=== PATIENT | male | born 1975 | race Two or more races ===

== ENCOUNTER 2017-04-27 05:57 | Emergency (ER) | payer OTHER ==
[~2017-04-27] VITALS: Ht 177.8 cm; Wt 90.7 kg
[2017-04-27] MEDS ORDERED: NKM (06:00)
[2017-04-27 06:05] VITALS: BP 148/97
--- NOTE | 2017-04-27 06:09 | Emergency Room Report ---
History of Present Illness General Chief Complaint: Abdominal Pain Source: Patient (Balaji Kaur M.D.) Present Illness HPI Patient presents with abdominal pain and vomiting. He was in a hotel and drinking alcohol and felt that there might have been other drugs involved. Paramedics were summoned as the patient feels weak and unable to ambulate at this time. His epigastric pain. He had a similar several weeks ago with similar presentation. Pain reported 7/10, burning, constant and not radiating to back. The patient denies any cardiac disease. Denies any vomiting blood or melena. Has no fever. He states he has to urinate but is unable. Denies intent to do self harm. (Balaji Kaur M.D.) Allergies: Coded Allergies: No Known Allergies (Unverified , 04/27/17) Patient History Past Medical History: see triage record Social History: Reports: alcohol use, drug use, smoking Reviewed Nursing Documentation: PMH: Agreed, PSxH: Agreed (Balaji Kaur M.D.) Nursing Documentation-PMH Past Medical History: No Stated History (Balaji Kaur M.D.) Review of Systems All Other Systems: negative except mentioned in HPI (Blaaji Kaur M.D.) All Other Systems: negative except mentioned in HPI (GALE TAVAREZ D.O.) Physical Exam Vital Signs Date Time Temp Pulse Resp B/P Pulse Ox O2 Delivery O2 Flow Rate FiO2 04/27/17 06:00 98.2 100 18 148/97 100 Room Air Sp02 EP Interpretation: reviewed, normal General Appearance: GCS 15, mild distress Head: normocephalic Eyes: bilateral eye PERRL, bilateral eye Scleral Injection ENT: dry mucus membranes Neck: supple Respiratory: lungs clear, normal breath sounds Cardiovascular #1: regular rate, rhythm Cardiovascular #2: 2+ radial (R) Gastrointestinal: normal inspection, no mass, non-distended, no guarding, no rebound, abnormal bowel sounds - decreased, tenderness - epigastric Genitourinary: normal inspection Musculoskeletal: back normal, normal range of motion Neurologic: alert, oriented x3, motor strength/tone normal, sensory intact, speech normal, other - generalized weakness Psychiatric: depressed affect Skin: normal inspection, warm/dry (Balaji Kaur M.D.) Sp02 EP Interpretation: reviewed, normal General Appearance: well appearing, no apparent distress Head: normocephalic, atraumatic Eyes: bilateral eye EOMI, bilateral eye PERRL ENT: hearing grossly normal, normal pharynx, TMs + canals normal, uvula midline Neck: full range of motion, supple, no meningismus, no bony tend Respiratory: lungs clear, normal breath sounds, no rhonchi, no respiratory distress, no retraction, no accessory muscle use Cardiovascular #1: normal peripheral pulses, regular rate, rhythm, no edema, no gallop, no JVD, no murmur Gastrointestinal: normal bowel sounds, non tender, soft, no mass, no organomegaly, non-distended, no guarding, no hernia, no pulsatile mass, no rebound Genitourinary: no CVA tenderness Neurologic: oriented x3, responsive, manager background III-XII nml as tested, motor strength/ tone normal, sensory intact Psychiatric: mood/affect normal Skin: normal color, no rash, warm/dry, palpation normal Lymphatic: normal inspection, no adenopathy (GALE TAVAREZ.Melissa) Medical Decision Making Diagnostic Impression: Primary Impression: Abdominal pain Qualified Codes: R10.13 - Epigastric pain Additional Impression: Amphetamine abuse ER Course Patient with alleged polysubstance ingestion. DDx: electrolyte abnormality, drug ingestion, alcohol intoxication, rhabdo, occult infection amongst others. He denies SI or HI. Needs evaluation with EKG, CXR, labs. IV hydration ordered. Also pepcid ordered. Patient signed out to Dr. Tavarez. (Balaji Kaur M.D.) ER Course With the history exam and presentation, multiple differentials considered, including but not limited to appendicitis, gastritis, cholecystitis, diverticulitis Please refer to the initial note for the initial history and exam At this time on reevaluation Patient has done significantly better reports that his pain in the epigastric area down to 2/10 Patient unfortunately was not able to provide urine sample We did suggest a simple in and out catheter for the urine however the patient is refusing this With further discussion the patient does admit to increased alcohol ingestion Feel that this could have potentially cause his irritation Patient reports that he has had this similar episode several times Denies drinking anything such as rubbing alcohol Patient's evaluation is not in line with any signs of perforation clinically And at this time will be attempted for initial conservative outpatient trial If anything worsens will return to ER Labs Test 04/27/17 06:30 White Blood Count 11.7 K/UL (4.8-10.8) Red Blood Count 4.55 M/UL (4.70-6.10) Hemoglobin 15.2 G/DL (14.2-18.0) Hematocrit 43.7 % (42.0-52.0) Mean Corpuscular Volume 96 FL (80-99) Mean Corpuscular Hemoglobin 33.3 PG (27.0-31.0) Mean Corpuscular Hemoglobin Concent 34.7 G/DL (32.0-36.0) Red Cell Distribution Width 11.2 % (11.6-14.8) Platelet Count 354 K/UL (150-450) Mean Platelet Volume 6.0 FL (6.5-10.1) Neutrophils (%) (Auto) 74.7 % (45.0-75.0) Lymphocytes (%) (Auto) 17.3 % (20.0-45.0) Monocytes (%) (Auto) 7.0 % (1.0-10.0) Eosinophils (%) (Auto) 0.1 % (0.0-3.0) Basophils (%) (Auto) 0.9 % (0.0-2.0) Sodium Level 138 mEQ/L (135-145) Potassium Level 3.8 mEQ/L (3.4-4.9) Chloride Level 98 mEQ/L (98-107) Carbon Dioxide Level 23 mEQ/L (20-30) Anion Gap 17 (5-15) Blood Urea Nitrogen 18 mg/dL (7-23) Creatinine 1.2 mg/dL (0.7-1.2) Estimat Glomerular Filtration Rate > 60 mL/min (>60) Glucose Level 103 mg/dL (74-106) Calcium Level 9.5 mg/dL (8.6-10.2) Total Bilirubin 0.6 mg/dL (0.0-1.2) Aspartate Amino Transf (AST/SGOT) 20 U/L (5-40) Alanine Aminotransferase (ALT/SGPT) 16 U/L (3-41) Alkaline Phosphatase 92 U/L (40-129) Total Protein 9.2 g/dL (6.6-8.7) Albumin 5.6 g/dL (3.5-5.2) Globulin 3.6 g/dL Albumin/Globulin Ratio 1.5 (1.0-2.7) Lipase 15 U/L (< 60) Serum Alcohol < 10 mg/dL (GALE TAVAREZ D.O.) EKG Diagnostic Results Rhythm: NSR ST Segments: no acute changes (Balaji Kaur M.D.) Rhythm Strip Diag. Results EP Interpretation: yes Rhythm: NSR, no PVC's, no ectopy (Balaji Kaur M.D.) Status: improved (Balaji Kaur M.D.) Status: improved (GALE TAVAREZ D.O.) Disposition: HOME, SELF-CARE Condition: Improved Scripts Mag Hydrox/Al Hydrox/Simeth (MAALOX MAXIMUM STRENGTH SUSP) 355 Ml Oral.susp 15 ML PO BID for 7 Days, ML Prov: GALE TAVAREZ D.O. 04/27/17 Famotidine (PEPCID AC) 20 Mg Tablet 20 MG PO DAILY for 10 Days, TAB Prov: GALE TAVAREZ D.O. 04/27/17 Additional Instructions: Patient is provided with the discharge instructions notified to follow up with primary doctor in the next 2-3 days otherwise return to the er with any worsening symptoms. Please note that this report is being documented using Mett[employer] technology. This can lead to erroneous entry secondary to incorrect interpretation by the dictating instrument. Balaji Kaur M.D. Apr 27, 2017 06:09 GALE TAVAREZ D.O. Apr 27, 2017 08:38
[2017-04-27] MEDS ORDERED: Famotidine 20 MG/ 2ML VIAL IVP ONE (06:15)
[2017-04-27 07:05] LABS: BASOPHILS % (AUTO) 0.9 % (0.0-2.0); EOSINOPHILS % (AUTO) 0.1 % (0.0-3.0); LYMPHOCYTES % (AUTO) 17.3 % (20.0-45.0); MEAN CORPUSCULAR HEMOGLOBIN 33.3 PG (27.0-31.0); MEAN CORPUSCULAR HGB CONC 34.7 G/DL (32.0-36.0); MEAN CORPUSCULAR VOLUME 96 FL (80-99); NEUTROPHILS % (AUTO) 74.7 % (45.0-75.0); PLATELET COUNT 354 K/UL (150-450); RED BLOOD COUNT 4.55 M/UL (4.70-6.10); RED CELL DISTRIBUTION WIDTH 11.2 % (11.6-14.8); WHITE BLOOD COUNT 11.7 K/UL (4.8-10.8)
[2017-04-27 07:15] VITALS: BP 184/102
[2017-04-27 07:24] LABS: ALANINE AMINOTRANSFERASE 16 U/L (3-41); ALBUMIN/GLOBULIN RATIO 1.5 (1.0-2.7); ANION GAP 17 (5-15); ASPARTATE AMINO TRANSFERASE 20 U/L (5-40); CALCIUM 9.5 mg/dL (8.6-10.2); CARBON DIOXIDE 23 mEQ/L (20-30); CHLORIDE 98 mEQ/L (98-107); CREATININE 1.2 mg/dL (0.7-1.2); GLOMERULAR FILTRATION RATE > 60 mL/min (>60); HEMOLYSIS 1; LIPASE 15 U/L (< 60); POTASSIUM 3.8 mEQ/L (3.4-4.9); SODIUM 138 mEQ/L (135-145); TOTAL PROTEIN 9.2 g/dL (6.6-8.7)
[2017-04-27] MEDS ORDERED: PEPCID AC20 M2 PO (08:34)
[2017-04-27] MEDS ORDERED: MAALOX MAXIMUM355 M1 PO (08:34)
[2017-04-27 08:45] VITALS: BP 162/101
[2017-04-27 09:01] LABS: APPEARANCE,URINE SLIGHTLY CLOUDY; KETONES,URINE NEGATIVE (NEGATIVE); LEUKOCYTE ESTERASE ,URINE NEGATIVE (NEGATIVE); NITRITE,URINE NEGATIVE (NEGATIVE); PH,URINE 6.5 (4.5-8.0); PROTEIN,URINE NEGATIVE (NEGATIVE); UROBILINOGEN,URINE NORMAL MG/DL (0.0-1.0)
[2017-04-27 09:11] LABS: BACTERIA,URINE FEW /HPF; MUCUS,URINE MODERATE /LPF (NONE/OCC); SQUAMOUS EPITHELIAL CELL,UR OCCASIONAL /LPF (NONE/OCC)
--- NOTE | 2017-04-29 17:13 | Cardiology Report ---
APPROVED REPORT EKG Measurement Heart [id number] Sinus tachycardia Otherwise normal ECG
== END 2017-04-27 09:20 | disposition home or self-care (01) ==
LOC: EDBD 05:57 → EMR 06:27
DX: R10.13 Epigastric pain (principal); F15.10 Other stimulant abuse, uncomplicated; F17.200 Nicotine dependence, unspecified, uncomplicated
CPT/HCPCS: 36415; 80053; 80300; 80329; 81003; 83690; 85025; 93005; 96361; 96374; 96375; 99284; J2405; S0028